=== PATIENT | male | born 1980 | race American Indian/Alaskan Native ===

== ENCOUNTER 2021-04-07 09:56 | Emergency (ER) | payer OTHER ==
--- NOTE | 2021-04-07 11:49 | Emergency Department Report ---
Blank Doc - Documentation Documentation: 41-year-old male that presents with left forearm and elbow lac after injury with glass. 1- This is a initial triage assessment/medical screening only. Full assessment and work-up will be completed once the patient is in proper hospital gown, ED bed and in a private room setting. This initial assessment/diagnostic orders/clinical plan/ treatment(s) is/are subject to change based on pt's health status, clinical progression and re-assessment by fellow clinical providers in t he ED. Further treatment and workup at subsequent clinical providers discretion. Patient/guardians urged not to elope from ED as their condition may be serious if not clinically assessed and managed. 2-xrays 3-lac repair to be performed
--- NOTE | 2021-04-07 12:36 | XRay Report ---
LEFT ELBOW 3 VIEWS INDICATION: Laceration, evaluate for foreign body. COMPARISON: None. IMPRESSION: Soft tissue laceration is noted posterior medially at the level of the elbow. There are 2 small angular radiodensities measuring up to 4 mm in this area which probably represent small forei gn bodies. This is only appreciated on the oblique image. No acute osseous abnormality or joint patho logy is detected. Signer Name: Jesús Oliveira Jr, MD Signed: 04/07/2021 12:32 PM Workstation Name: [id number]
--- NOTE | 2021-04-07 12:36 | XRay Report ---
LEFT FOREARM 2 VIEW(S) INDICATION / CLINICAL INFORMATION: laceration/glass COMPARISON: None available. FINDINGS: BONES / JOINT(S): No acute fracture or subluxation. No significant arthritis. SOFT TISSUES: No significant abnormality. ADDITIONAL FINDINGS: No radiopaque foreign bodies noted.. Signer Name: Gee Chavez MD Signed: 04/07/2021 12:31 PM Workstation Name: [id number] [id number]
[2021-04-07] MEDS ORDERED: SODIUM CHLORIDE 0.9% IRR 500 ML BOTTLE IR ONE (14:36)
[2021-04-07] MEDS ORDERED: LIDOCAINE (1%) 10 MG/1 ML VIAL 20 ML MDV INFILTRATI ONE (14:37)
--- NOTE | 2021-04-07 14:38 | Emergency Department Report ---
ED General Adult HPI - General Chief complaint: Wound/Laceration Stated complaint: ARM SLICED OPEN PASSED OUT Time Seen by Provider: 04/07/21 11:30 Source: patient Mode of arrival: Ambulatory Limitations: No Limitations - History of Present Illness Initial comments: 41-year-old -[place] male patient presents with complaints of left arm laceration today. Patient states his arm went through a window and it broke cutting him. He states his last tetanus vaccination was 2 years ago. He denies any difficulty moving his arm or hand or loss of sensation/numbness. -: Sudden - Related Data Previous Rx's Medication Instructions Recorded Last Taken Type Ibuprofen [Motrin 800 MG tab] 800 mg PO Q8HR PRN #20 tablet 04/07/21 Unknown Rx Mupirocin [Bactroban 2% OINT] 1 applic TP TID 7 Days #1 tube 04/07/21 Unknown Rx cephALEXin [Keflex] 500 mg PO Q12HR #14 cap 04/07/21 Unknown Rx Allergies Allergy/AdvReac Type Severity Reaction Status Date / Time No Known Allergies Allergy Unverified 04/07/21 11:27 ED Review of Systems ROS: Stated complaint: ARM SLICED OPEN PASSED OUT Other details as noted in HPI Musculoskeletal: denies: joint swelling, arthralgia Skin: as per HPI. denies: lesions, change in color, pruritus Neurological: denies: numbness, paresthesias ED Past Medical Hx - Past Medical History Previous Medical History?: No - Surgical History Past Surgical History?: No - Medications Home Medications: Home Medications Medication Instructions Recorded Confirmed Last Taken Type Ibuprofen [Motrin 800 MG tab] 800 mg PO Q8HR PRN #20 tablet 04/07/21 Unknown Rx Mupirocin [Bactroban 2% OINT] 1 applic TP TID 7 Days #1 tube 04/07/21 Unknown Rx cephALEXin [Keflex] 500 mg PO Q12HR #14 cap 04/07/21 Unknown Rx ED Physical Exam - General Limitations: No Limitations General appearance: alert, in no apparent distress - Head Head exam: Present: atraumatic, normocephalic - Eye Eye exam: Present: normal appearance. Absent: scleral icterus - Respiratory Respiratory exam: Absent: respiratory distress - Cardiovascular Cardiovascular Exam: Present: regular rate - Neurological Exam Neurological exam: Present: alert, oriented X3 - Psychiatric Psychiatric exam: Present: normal affect, normal mood - Skin Skin exam: Present: warm, dry, normal color. Absent: intact (7 cm laceration noted to left inner upper forearm without obvious foreign bodies; 3 cm laceration noted to lower left forearm without obvious foreign body), rash ED Course Vital Signs 04/07/21 11:27 Temperature 98.6 F Pulse Rate 73 Respiratory 18 Rate Blood Pressure 153/110 O2 Sat by Pulse 98 Oximetry - Laceration /Wound Repair Arm Wound Length (cm): 7 Wound's Depth, Shape: linear Irrigated w/ Saline (ccs): 400 Betadine Prep?: Yes Anesthesia: 1% Lidocaine Volume Anesthetic (ccs): 6 Suture Size/Type: 3:0, proline Number of Sutures: 11 (10 continuous, 1 simple interrupted) Sterile Dressing Applied?: Yes Progress: Minimal bleeding occurred. Patient tolerated procedure well without any immediate complications he has normal range of motion of the elbow, forearm, and hand and fingers post procedure Second laceration to lower left forearm repaired 3 cm in length Betadine prep and sterile procedure used 100 cc of normal saline used to irrigate wound 3-0 Prolene used 10 continuous sutures placed No wound debridement Sterile dressing placed Minimal bleeding occurred Patient tolerated procedure well without any immediate complication ED Medical Decision Making - Radiology Data Radiology results: report reviewed LEFT ELBOW 3 VIEWS INDICATION: Laceration, evaluate for foreign body. COMPARISON: None. IMPRESSION: Soft tissue laceration is noted posterior medially at the level of the elbow. There are 2 small angular radiodensities measuring up to 4 mm in this area which pr obably represent small foreign bodies. This is only appreciated on the oblique image. No acute osseous abnormality or joint pathology is detected. Signer Name: Jesús Oliveira Jr, MD Signed: 04/07/2021 12:32 PM Workstation Name: [id number] LEFT FOREARM 2 VIEW(S) INDICATION / CLINICAL INFORMATION: laceration/glass COMPARISON: None available. FINDINGS: BONES / JOINT(S): No acute fracture or subluxation. No significant arthritis. SOFT TISSUES: No significant abnormality. ADDITIONAL FINDINGS: No radiopaque foreign bodies noted.. - Medical Decision Making 41-year-old -[place] male patient presents with complaints of left arm laceration today. Patient states his arm went through a window and it broke cu tting him. He states his last tetanus vaccination was 2 years ago. He denies any difficulty moving his arm or hand or loss of sensation/numbness. 2 small possible foreign bodies noted on x-ray of the elbow .wound was irrigated with 400 cc of normal saline, however no foreign bodies were noted. Discussed these findings with patient in detail and signs and symptoms that should prompt immediate evaluation, he verbalizes understanding. Laceration repair without any immediate complications. Discussed wound care and signs and symptoms that should prompt immediate return to the emergency department in detail patient verbalized understanding. Keflex and mupirocin given for infection prophylaxis. Also discussed elevated BP and need for follow-up with primary care in 2 days for recheck Critical care attestation.: If time is entered above; I have spent that time in minutes in the direct care of this critically ill patient, excluding procedure time. ED Disposition Clinical Impression: Multiple lacerations, Elevated blood pressure reading in office without diagnosis of hypertension Disposition: TO HOME OR SELFCARE Is pt being admited?: No Condition: Stable Instructions: Sutures, [place], or Adhesive Wound Closure Additional Instructions: Return to the emergency department in 10 days for suture removal Prescriptions: Mupirocin [Bactroban 2% OINT] 1 applic TP TID 7 Days #1 tube cephALEXin [Keflex] 500 mg PO Q12HR #14 cap Ibuprofen [Motrin 800 MG tab] 800 mg PO Q8HR PRN #20 tablet PRN Reason: pain Referrals: [facility] [Provider Group] - 2-3 Days (Blood pressure) Forms: Work/School Release Form(ED)
[2021-04-07] MEDS ORDERED: LIDOCAINE 1%/EPINEPHRINE 1:100,000 VIAL (20 ML) INFILTRATI NR (15:00)
[2021-04-07 16:35] VITALS: BP 156/104
== END 2021-04-07 16:38 | disposition home or self-care (01) ==
LOC: ED 09:56
DX: S51.012A Laceration without foreign body of left elbow, initial encounter (principal); S51.812A Laceration without foreign body of left forearm, initial encounter; R03.0 Elevated blood-pressure reading, without diagnosis of hypertension; X58.XXXA Exposure to other specified factors, initial encounter; Y93.89 Activity, other specified; Y92.89 Other specified places as the place of occurrence of the external cause; Y99.8 Other external cause status
CPT/HCPCS: 99283

== ENCOUNTER 2021-04-19 09:46 | Emergency (ER) | payer OTHER ==
[2021-04-19 11:05] VITALS: BP 181/111
--- NOTE | 2021-04-19 11:30 | Emergency Department Report ---
Suture/Staple Removal - HPI Chief Complaint: Laceration/Recheck/Suture Stated Complaint: STICH REMOVAL Time Seen by Provider: 04/19/21 11:16 When Sutures or [place] Placed: 11-14 Days Ago Wound Location: left forearm ED Review of Systems ROS: Stated complaint: STICH REMOVAL Other details as noted in HPI Comment: All other systems reviewed and negative ED Past Medical Hx - Medications Home Medications: Home Medications Medication Instructions Recorded Confirmed Last Taken Type Ibuprofen [Motrin 800 MG tab] 800 mg PO Q8HR PRN #20 tablet 04/07/21 Unknown Rx Mupirocin [Bactroban 2% OINT] 1 applic TP TID 7 Days #1 tube 04/07/21 Unknown Rx cephALEXin [Keflex] 500 mg PO Q12HR #14 cap 04/07/21 Unknown Rx Suture Removal Exam - Exam General: Vital signs noted. No distress. Alert and acting appropriately. Wound: No Pathologic Erythema, No Tenderness, No Drainage, No Pus, No Wound Dehiscence Other Systems: All other systems reviewed and are unremarkable. ED Course Vital Signs 04/19/21 11:04 Temperature 98.5 F Pulse Rate 64 Respiratory 18 Rate Blood Pressure 181/111 [Left] O2 Sat by Pulse 99 Oximetry ED Recheck MDM - Core Measures Measure Exclusions: not indicated - Differential Diagnosis Suture/Staple Removal Critical care attestation.: If time is entered above; I have spent that time in minutes in the direct care of this critically ill patient, excluding procedure time. ED Disposition Clinical Impression: Visit for suture removal Disposition: 01 HOME / SELF CARE / HOMELESS Is pt being admited?: No Does the pt Need Aspirin: No Condition: Stable Instructions: Wound Closure Removal, Care After Additional Instructions: Keep area clean and dry Forms: Work/School Release Form(ED) Time of Disposition: 11:33
== END 2021-04-19 11:43 | disposition home or self-care (01) ==
LOC: ED 09:46
DX: S51.819D Laceration without foreign body of unspecified forearm, subsequent encounter (principal); X58.XXXD Exposure to other specified factors, subsequent encounter